=== PATIENT | female | born 1955 | race Caucasian/White ===

== ENCOUNTER → 2020-11-10 04:17 | Outpatient (CLI) | payer BC, SELFPAY ==
[2020-11-10 19:04] LABS: SARS-CoV-2 RNA PCR Negative
== END ==
PROVIDERS: PCP Internal Medicine; Visit Provider Internal Medicine Gastroenterology
DX: Z01.812 Encounter for preprocedural laboratory examination (principal); Z20.822 Contact with and (suspected) exposure to COVID-19
CPT/HCPCS: C9803; U0003; U0005

== ENCOUNTER 2020-11-13 02:09 | Day surgery (SDC) | payer BC, SELFPAY ==
[2020-10-29 12:28] VITALS: BMI 33.3
[2020-11-13 09:52] VITALS: BP 148/65; PULSE 65; RESP 18; TEMP 37.1; O2SAT 98
[2020-11-13] MEDS: LACTATED RINGERS 1,000 ML 150 ML IV CONT (10:02)
--- NOTE | 2020-11-13 10:05 | WPDANESEPPF ---
Anes - Initial Pre Proc Eval Procedure: Operation Date: 11/13/20 10:30 Proposed Procedures p Screening Colonoscopy - Brain Ybarra MD Date/Time: 11/13/20 10:05 Surgeon: Brain Ybarra MD Pre Op Diagnosis: neoplasm screening Patient Data Age: 65 Gender: F Height: 5 ft 5 in Weight: 93.3 kg Last Vital Signs Temp 37.1 C 11/13/20 09:52 Pulse 65 11/13/20 09:52 Resp 18 11/13/20 09:52 BP 148/65 H 11/13/20 09:52 Pulse Ox 98 11/13/20 09:52 Allergies Allergy/AdvReac Type Severity Reaction Status Date / Time No Known Allergies Allergy Verified 11/13/20 09:41 Home Medications Medication Instructions Recorded Confirmed Type aspirin 81 mg PO DAILY 10/29/20 10/29/20 History levothyroxine 100 mcg PO DAILY 10/29/20 10/29/20 History lisinopril 2.5 mg PO DAILY 10/29/20 10/29/20 History metoprolol tartrate 25 mg PO BID 10/29/20 10/29/20 History Patient hx anesthesia problems: none Family hx anesthesia problems: none PMFSH Past Medical History Medical History Hypertension ROMERO (obstructive sleep apnea) Family History Family History Father Family history of Parkinson's disease Mother Family history of diabetes mellitus in first degree relative Family history of malignant neoplasm of uterus Other Diabetes mellitus Family history of malignant neoplasm of skin Social History Social History Smoking status: Never smoker Alcohol intake: never Substance use type: does not use Living arrangements: with family Spiritual care concerns: No Anes - Eval Final PreProcedure Day of Procedure 11/13/20 10:05 Patient weight: obese Heart: regular rate and rhythm Lungs: clear to auscultation Airway: Mallampati scale class III Neurological: alert and oriented Last oral intake: >/= 8 hours ASA classification: III Emergent: no Anesthetic plan: proceed Anesthesia type and monitoring: general GIVS and standard monitoring Informed Consent: The patient's anesthetic plan and its attendant risks and benefits were discussed with the patient/family/POA. Questions were solicited and answers provided to the satisfaction of the patient/family/POA.
--- NOTE | 2020-11-13 10:12 | PM.HPGS ---
History of Present Illness History of Present Illness Consent: Risks, benefits, and alternatives have been discussed and questions answered. Patient agrees to proceed with procedure. Chief complaint: neoplasm screening Narrative: Sanjana Ferrer is a 65 year old female referred for colon cancer screening Review of Systems Review of Systems: All systems reviewed & are unremarkable except as noted in HPI and below PMFSH Past Medical History Medical History Hypertension ROMERO (obstructive sleep apnea) Family History Family History Father Family history of Parkinson's disease Mother Family history of diabetes mellitus in first degree relative Family history of malignant neoplasm of uterus Other Diabetes mellitus Family history of malignant neoplasm of skin Social History Social History Smoking status: Never smoker Alcohol intake: never Substance use type: does not use Living arrangements: with family Spiritual care concerns: No Meds Home Medications and Allergies Home Medications Medication Instructions Recorded Confirmed Type aspirin 81 mg PO DAILY 10/29/20 10/29/20 History levothyroxine 100 mcg PO DAILY 10/29/20 10/29/20 History lisinopril 2.5 mg PO DAILY 10/29/20 10/29/20 History metoprolol tartrate 25 mg PO BID 10/29/20 10/29/20 History Allergies Allergy/AdvReac Type Severity Reaction Status Date / Time No Known Allergies Allergy Verified 11/13/20 09:41 Vital Signs Vital Signs - 24 hr 11/13/20 09:52 Temperature 37.1 C Pulse Rate 65 Respiratory Rate 18 Blood Pressure 148/65 H Pulse Oximetry 98 Exam Resp: Auscultation: clear to auscultation bilaterally Cardio: Rate: regular rate Rhythm: regular rhythm GI: GI Palp: Yes Soft to palpation and No Tenderness to palpation present (GI) Assessment and Plan Assessment and plan (1) Colon cancer screening: Code(s): Z12.11 - Encounter for screening for malignant neoplasm of colon Status: Acute Assessment and Plan: Colonoscopy with possible biopsy or polypectomy or cautery or injection of substances.
[2020-11-13 10:42] VITALS: BP 99/46; PULSE 65; RESP 18; O2SAT 98
[2020-11-13 10:52] VITALS: BP 112/60; PULSE 64; RESP 16; O2SAT 99
[2020-11-13 11:02] VITALS: BP 124/60; PULSE 66; RESP 18; O2SAT 99
== END 2020-11-13 11:30 | disposition home or self-care (01) ==
PROVIDERS: PCP Internal Medicine; Visit Provider Internal Medicine Gastroenterology
PROC: 0DJD8ZZ Inspection of Lower Intestinal Tract, Via Natural or Artificial Opening Endoscopic (ICD-10-PCS; CPT 45378; principal; 2020-11-13 10:30)
DX: Z12.11 Encounter for screening for malignant neoplasm of colon (principal); K57.30 Diverticulosis of large intestine without perforation or abscess without bleeding; Z79.82 Long term (current) use of aspirin; G47.33 Obstructive sleep apnea (adult) (pediatric); E66.9 Obesity, unspecified; Z68.34 Body mass index [BMI] 34.0-34.9, adult; E03.9 Hypothyroidism, unspecified; I10 Essential (primary) hypertension
CPT/HCPCS: 45378; J2704; J7120

== ENCOUNTER → 2021-01-19 17:54 | Outpatient (CLI) | payer BC, SELFPAY ==
--- NOTE | ~2021-01-19 | MR_ITS ---
EXAMINATION: MR knee RT wo con DATE: 01/19/2021 19:06 INDICATION: Right knee pain and joint instability TECHNIQUE: Magnetic resonance imaging (MRI) of the right knee was performed without intravenous contr ast. Sequences included coronal PD-weighted FSE, coronal PD-weighted FS FSE, sagittal T2-weighted FS E, sagittal PD-weighted FS FSE and axial PD weighted fat saturated FSE. COMPARISON: None. FINDINGS: Medial compartment: Complex tear of the body and posterior horn of the medial meniscus. Shallow chondral ulceration with surface regularity and scattered deeper fissuring along the anterior to central weightbearing medial femoral condyle. There is a tiny focus of subarticular edema along the medial margin of the weightbea ring medial femoral condyle. Mild partial thickness cartilage loss with smooth chondral surface along the peripheral margins of the medial tibial plateau. Lateral compartment: Longitudinal horizontal tear at the body of the medial meniscus which extends to contact the inferior articular surface. There is similar partial-thickness chondral ulceration with chondral surface regu larity at the anterior weightbearing lateral femoral condyle. Deeper chondral ulceration with underly ing central subchondral osteophytes at the anteromedial most aspect of the weightbearing lateral femo ral condyle. Mild chondral surface regularity at the central and posterior aspects of the lateral tib ial plateau. Patellofemoral compartment: There is extensive full and near full-thickness cartilage loss with scattered subarticular edema and mild cystic change at both the lateral patellar facet, apical ridge and lateral margin of the medial patellar facet as well as cross significant portions of the lateral trochlea. Deep chondral fissure a t the junction of the inferior trochlear groove and medial trochlea. Ligaments and tendons: Anterior and posterior cruciate ligaments are normal. The medial collateral ligament and fibular yonny ateral ligament complex are normal. Mild enthesopathy with prominent enthesophytes at the patellar an d tibial insertions of the patellar tendon and distal quadriceps tendon. The visualized medial and la teral hamstring tendons as well as the iliotibial band are normal. Fluid: Minimal right knee joint effusion at the suprapatellar pouch. No loose osteochondral bodies identifie d. Osseous/other: Marrow signal is normal aside from the previous noted foci of degenerative subarticular edema. No fra cture or pathologic marrow replacing process. IMPRESSION: 1. Complex medial meniscal tear and longitudinal horizontal tear at the body of the lateral meniscus. 2. 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 Reviewed, dictated and finalized at location A. IMPRESSION: 1. Complex medial meniscal tear and longitudinal horizontal tear at the body of the lateral meniscus. 2. Tricompartmental osteoarthritis, severe at the lateral side of the patellofe moral compartment and mild with regions of moderate to high-grade chondromalaci a in the medial and lateral compartments.
== END ==
PROVIDERS: PCP Internal Medicine; Visit Provider Internal Medicine
DX: M17.11 Unilateral primary osteoarthritis, right knee (principal); S83.231A Complex tear of medial meniscus, current injury, right knee, initial encounter; M25.361 Other instability, right knee
CPT/HCPCS: 73721

== ENCOUNTER → 2021-06-29 17:54 | Outpatient (CLI) | payer BC, SELFPAY ==
--- NOTE | ~2021-06-29 | MM_ITS ---
EXAMINATION: MM screening [facility] w [facility] HISTORY: Screening mammogram TECHNIQUE: Craniocaudal and mediolateral oblique 3-D tomosynthesis images were obtained and synthetic 2-D images were generated. CAD analysis was submitted and interpreted. COMPARISON: No prior mammogram is available for comparison at this institution. BREAST PARENCHYMAL COMPOSITION: There are scattered areas of fibroglandular density. FINDINGS: RIGHT BREAST: There is asymmetry in middle third of the breast on the craniocaudal view. LEFT BREAST: Asymmetry is present posterior third of the upper breast 8 cm from the nipple on the med iolateral oblique view. IMPRESSION: 1. Bilateral breast asymmetries which may represent the patient's baseline however no comparison is c urrently available. 2. Comparison with prior mammograms is necessary. BI-RADS Category 0: Incomplete: Needs comparison with prior mammograms. Reviewed, dictated and finalized at location A. 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 Bilateral breast asymmetries which may represent the patient's baseline bojorquez lola no comparison is currently available. 2. Comparison with prior mammograms is necessary. BI-RADS Category 0: Incomplete: Needs comparison with prior mammograms.
== END ==
PROVIDERS: PCP Internal Medicine; Visit Provider Internal Medicine
DX: Z12.31 Encounter for screening mammogram for malignant neoplasm of breast (principal); R92.8 Other abnormal and inconclusive findings on diagnostic imaging of breast
CPT/HCPCS: 77063; 77067

== ENCOUNTER → 2022-07-12 07:30 | Outpatient (CLI) | payer OTHER, SELFPAY ==
--- NOTE | ~2022-07-12 | MM_ITS ---
EXAMINATION: MM screening [facility] BI w [facility] HISTORY: Screening mammogram TECHNIQUE: Craniocaudal and mediolateral oblique 3-D tomosynthesis images were obtained and synthetic 2-D images were generated. CAD analysis was submitted and interpreted. COMPARISON: 06/29/2021, 05/11/2020, 05/08/2019 BREAST PARENCHYMAL COMPOSITION: There are scattered areas of fibroglandular density. FINDINGS: No suspicious mass, calcification, or architectural distortion are identified in either nimesh ast to suggest malignancy. There has been no suspicious interval change. IMPRESSION: 1. No mammographic evidence of malignancy. 2. Recommend routine screening mammography in one year. BI-RADS Category 1: Negative Reviewed, dictated and finalized at location A. UNT OFFICER
== END ==
PROVIDERS: PCP Physician Assistant Medical; Visit Provider Physician Assistant Medical
DX: Z12.31 Encounter for screening mammogram for malignant neoplasm of breast (principal)
CPT/HCPCS: 77063; 77067

== ENCOUNTER 2024-01-06 11:06 | Outpatient (CLI) | payer MEDICARE, SELFPAY ==
--- NOTE | ~2024-01-06 | MM_ITS ---
EXAMINATION: MM screening [facility] w [facility] HISTORY: Screening mammogram TECHNIQUE: Craniocaudal and mediolateral oblique 3-D tomosynthesis images were obtained and synthetic 2-D images were generated. CAD analysis was submitted and interpreted. COMPARISON: 07/12/2022, 06/29/2021 bilateral screening mammogram examinations BREAST PARENCHYMAL COMPOSITION: There are scattered areas of fibroglandular density. FINDINGS: There is no evidence of suspicious mass, calcification, or architectural distortion to sugg est malignancy in either breast. There has been no suspicious interval change. IMPRESSION: 1. No mammographic evidence of malignancy. 2. Recommend routine screening mammography in one year. BI-RADS Category 1: Negative Reviewed, dictated and finalized at location A.
== END 2024-01-06 11:07 ==
PROVIDERS: PCP Physician Assistant Medical; Visit Provider Physician Assistant Medical
DX: Z12.31 Encounter for screening mammogram for malignant neoplasm of breast (principal)
CPT/HCPCS: 77063; 77067